=== PATIENT | male | born 1955 | race Caucasian/White ===

== ENCOUNTER 2017-09-05 16:49 | Inpatient (IN) | payer BC, OTHER ==
[~2017-09-05] VITALS: Ht 170.2 cm; Wt 114.4 kg
[~2017-09-05 16:49] MED LIST: ASPI-515 PO; ATOR20TA9 PO; CLOP75TA PO; CYCL-259 PO; HYDR-3245 PO; IBUP-1223 PO; LISI-170 PO; METO25TA91 PO; NITR0.4T28 SL; OMEG300C PO
[2017-09-05] MEDS ORDERED: DILTIAZEM 5 MG/ML, 5ML ONE (16:52)
[2017-09-05] MEDS ORDERED: DILTIAZEM 5 MG/ML, 5ML IV ONE (17:00)
[2017-09-05] MEDS ORDERED: SODIUM CHLORIDE FLUSH 10ML SYR IVF ONE (17:00)
[2017-09-05] MEDS ORDERED: ASPIRIN 81 MG TABLET CHEW PO ONE (17:00)
[2017-09-05 17:18] LABS: HEMATOCRIT 55.1 % (39.2-51.8); HEMOGLOBIN 18.5 g/dL (13.7-18.0); WHITE BLOOD COUNT 11.3 x10^3/uL (3.4-10)
[2017-09-05 17:27] LABS: BLOOD UREA NITROGEN 12 mg/dL (7-18)
[2017-09-05] MEDS ORDERED: DILTIAZEM 125 MG in SODIUM CHLORIDE 0.9% 100 ML IV ONE (17:31)
[2017-09-05 17:34] LABS: ASPARTATE AMINO TRANSFERASE 25 U/L (15-37); IS PT STATUS REG ER OR PRE ER? YES
[2017-09-05] MEDS ORDERED: NIAC500C8 PO (17:40)
[2017-09-05] MEDS ORDERED: GABA800T2 PO (17:40)
[2017-09-05] MEDS ORDERED: ENOXAPARIN 120MG/0.8ML SQ ONE (18:00)
[2017-09-05] MEDS ORDERED: Enoxaparin 1 mg/kg protocol SQ ONE (18:00)
[2017-09-05] MEDS: DILTIAZEM 125 MG in SODIUM CHLORIDE 0.9% 100 ML IV SCH (18:51)
[2017-09-05] MEDS ORDERED: ONDANSETRON 2MG/ML, 2ML IV PRN (19:00)
[2017-09-05] MEDS ORDERED: NITROGLYCERIN 0.4 MG BOTTLE (25 TABS) SL SCH (19:00)
[2017-09-05] MEDS ORDERED: DILTIAZEM 5 MG/ML, 5ML IVPush ONE (19:00)
[2017-09-05 19:37] LABS: IS PT STATUS REG ER OR PRE ER? YES
[2017-09-05 20:32] VITALS: BP 134/83
[2017-09-05] MEDS: NIACIN 500 MG TABLET.ER PO SCH (21:45)
[2017-09-05] MEDS: SODIUM CHLORIDE FLUSH 10ML SYR IVF SCH (21:46)
[2017-09-05] MEDS: OMEGA-3/FISH OIL CAPSULE PO SCH (21:46)
[2017-09-05] MEDS: GABAPENTIN 400 MG CAPSULE PO SCH (21:46)
[2017-09-05 21:55] VITALS: BP 134/76
[2017-09-05] MEDS: INSULIN ASPART 100 UNITS/ML, PEN SQ-INSULIN SCH (22:19)
[2017-09-05] MEDS: OXYcodone IR 5MG TABLET PO PRN (23:15)
[2017-09-06 01:54] LABS: IS PT STATUS REG ER OR PRE ER? NO
[2017-09-06] MEDS: OXYcodone IR 5MG TABLET PO PRN ×3 (02:12→21:10)
[2017-09-06] MEDS: NICOTINE 21 MG/24 HR PATCH.TD24 TD SCH ×2 (02:12→08:29)
[2017-09-06 02:18] VITALS: BP 129/86
[2017-09-06] MEDS: DILTIAZEM 125 MG in SODIUM CHLORIDE 0.9% 100 ML IV SCH (03:57)
[2017-09-06] MEDS ORDERED: ENOXAPARIN 120MG/0.8ML SQ SCH (06:00)
[2017-09-06 06:59] LABS: IS PT STATUS REG ER OR PRE ER? NO
[2017-09-06 08:04] VITALS: BP 124/87
[2017-09-06] MEDS: OMEGA-3/FISH OIL CAPSULE PO SCH (08:27)
[2017-09-06] MEDS: GABAPENTIN 400 MG CAPSULE PO SCH ×3 (08:27→21:11)
[2017-09-06] MEDS: NIACIN 500 MG TABLET.ER PO SCH ×2 (08:27→21:11)
[2017-09-06] MEDS: ATORVASTATIN 20 MG TABLET PO SCH (08:27)
[2017-09-06] MEDS: METOPROLOL SUCCINATE 25 MG TAB.ER.24H PO SCH (08:28)
[2017-09-06] MEDS: INSULIN ASPART 100 UNITS/ML, PEN SQ-INSULIN SCH ×4 (08:28→21:15)
[2017-09-06] MEDS: LISINOPRIL 20 MG TABLET PO SCH (08:28)
[2017-09-06] MEDS: SODIUM CHLORIDE FLUSH 10ML SYR IVF SCH ×2 (08:40→21:14)
[2017-09-06 10:02] VITALS: BP 118/75
[2017-09-06 10:15] VITALS: BP_SYST 103; BP_SYST 117; BP_SYST 121; BP_DIAS 68; BP_DIAS 74; BP_DIAS 78
[2017-09-06 13:00] VITALS: BP 115/72
[2017-09-06 20:48] VITALS: BP 109/69
[2017-09-06] MEDS: APIXABAN 5 MG TABLET PO SCH (21:10)
[2017-09-07 02:34] VITALS: BP 108/64
[2017-09-07 08:00] VITALS: BP 112/69
[2017-09-07] MEDS: INSULIN ASPART 100 UNITS/ML, PEN SQ-INSULIN SCH ×4 (08:08→21:53)
[2017-09-07] MEDS ORDERED: METOPROLOL SUCCINATE 50 MG TAB.ER.24H ONE (08:15)
[2017-09-07] MEDS: LISINOPRIL 20 MG TABLET PO SCH (08:20)
[2017-09-07] MEDS: GABAPENTIN 400 MG CAPSULE PO SCH ×3 (08:20→21:52)
[2017-09-07] MEDS: METOPROLOL SUCCINATE 25 MG TAB.ER.24H PO SCH (08:20)
[2017-09-07] MEDS: SODIUM CHLORIDE FLUSH 10ML SYR IVF SCH ×2 (08:20→21:52)
[2017-09-07] MEDS: NIACIN 500 MG TABLET.ER PO SCH ×2 (08:20→21:52)
[2017-09-07] MEDS: APIXABAN 5 MG TABLET PO SCH ×2 (08:22→21:52)
[2017-09-07] MEDS ORDERED: DIGOXIN 0.25 MG/ML, 2ML ONE (08:41)
[2017-09-07] MEDS ORDERED: DIGOXIN 0.25 MG/ML, 2ML IVPush ONE (09:00)
[2017-09-07] MEDS ORDERED: REGADENOSON 0.4 MG/5 ML SYRINGE ONE (09:45)
[2017-09-07 13:09] VITALS: BP 126/84
[2017-09-07] MEDS: DIGOXIN 0.25 MG/ML, 2ML IVPush SCH ×2 (14:47→21:57)
[2017-09-07] MEDS: NICOTINE 21 MG/24 HR PATCH.TD24 TD SCH (16:36)
[2017-09-07 19:45] VITALS: BP 114/77
[2017-09-07] MEDS: ATORVASTATIN 20 MG TABLET PO SCH (21:52)
[2017-09-07] MEDS: OXYcodone IR 5MG TABLET PO PRN (21:57)
[2017-09-08 00:28] VITALS: BP 132/77
[2017-09-08 05:11] LABS: HEMATOCRIT 51.9 % (39.2-51.8); HEMOGLOBIN 17.3 g/dL (13.7-18.0); WHITE BLOOD COUNT 9.1 x10^3/uL (3.4-10)
[2017-09-08 05:20] LABS: BLOOD UREA NITROGEN 17 mg/dL (7-18)
[2017-09-08] MEDS: INSULIN ASPART 100 UNITS/ML, PEN SQ-INSULIN SCH ×2 (07:00→11:00)
[2017-09-08] MEDS: OXYcodone IR 5MG TABLET PO PRN (08:14)
[2017-09-08 08:40] VITALS: BP 137/82
[2017-09-08] MEDS ORDERED: DIGOXIN 0.125 MG TABLET PO SCH (09:00)
[2017-09-08] MEDS ORDERED: DIGO125T PO (09:29)
[2017-09-08] MEDS: LISINOPRIL 20 MG TABLET PO SCH (09:34)
[2017-09-08] MEDS: SODIUM CHLORIDE FLUSH 10ML SYR IVF SCH (09:34)
[2017-09-08] MEDS: GABAPENTIN 400 MG CAPSULE PO SCH (09:34)
[2017-09-08] MEDS: METOPROLOL SUCCINATE 25 MG TAB.ER.24H PO SCH (09:35)
[2017-09-08] MEDS: NIACIN 500 MG TABLET.ER PO SCH (09:35)
[2017-09-08] MEDS: APIXABAN 5 MG TABLET PO SCH (09:35)
[2017-09-08] MEDS: NICOTINE 21 MG/24 HR PATCH.TD24 TD SCH (09:35)
[2017-09-08] MEDS ORDERED: APIX5TAB PO (09:35)
== END 2017-09-08 10:50 | disposition home or self-care (01) | DRG 309 ==
LOC: ED 18:51 → EDIP 18:52 → ED 18:56 → 5SO 20:28 → DCLOUNGE 09-08 10:33
PROVIDERS: ADMIT Family Medicine; ATTEND Internal Medicine
DX: I48.91 Unspecified atrial fibrillation (principal); D68.59 Other primary thrombophilia; E11.40 Type 2 diabetes mellitus with diabetic neuropathy, unspecified; I11.0 Hypertensive heart disease with heart failure; D75.1 Secondary polycythemia; I50.9 Heart failure, unspecified; I48.92 Unspecified atrial flutter; F17.210 Nicotine dependence, cigarettes, uncomplicated; J44.9 Chronic obstructive pulmonary disease, unspecified; G47.33 Obstructive sleep apnea (adult) (pediatric); I25.10 Atherosclerotic heart disease of native coronary artery without angina pectoris; I25.2 Old myocardial infarction; Z79.82 Long term (current) use of aspirin; Z82.49 Family history of ischemic heart disease and other diseases of the circulatory system; Z95.5 Presence of coronary angioplasty implant and graft; Z80.9 Family history of malignant neoplasm, unspecified
CPT/HCPCS: 36415; 71010; 78452; 80048; 80053; 82962; 83880; 84443; 84484; 85025; 85610; 93005; 93017; 93306; 96372; 96374; 96375; J1650; J1815; J2785; A9502; C9898; J1160